=== PATIENT | female | born 2000 | race African-American/Black ===

== ENCOUNTER 2022-08-08 00:36 | Emergency (ER) | payer MEDICAID ==
[2022-08-08] MEDS ORDERED: Ondansetron 4 MG/2 ML SDV IVPUSH ONE (02:31)
[2022-08-08] MEDS ORDERED: Sodium Chloride 0.9% 1,000 ML IV ONE (02:31)
[2022-08-08] MEDS ORDERED: Lactated Ringers 1,000 ML IV ONE (03:49)
[2022-08-08] MEDS ORDERED: Potassium Chloride 20 MEQ Tab.ER PO ONE (03:51)
[2022-08-08] MEDS ORDERED: Ondansetron 4 MG Tab.DIS PO ONE (04:49)
== END 2022-08-08 05:05 | disposition home or self-care (01) ==
LOC: JD.ED 00:36
DX: R11.2 Nausea with vomiting, unspecified (principal); E86.0 Dehydration; Z91.018 Allergy to other foods
CPT/HCPCS: 36415; 80053; 81001; 81025; 83690; 85025; 96361; 96374; 99284; A9270; J2405; J7030; J7120; 99282

== ENCOUNTER 2022-10-17 23:53 | Emergency (ER) | payer MEDICAID ==
[2022-10-18] MEDS ORDERED: Famotidine 20 MG/2 ML SDV IVPUSH ONE (00:12)
[2022-10-18] MEDS ORDERED: EPINEPHrine 1 MG/ML SDV IM ONE (00:12)
[2022-10-18] MEDS ORDERED: diphenhydrAMINE 50 MG/ML SDV IVPUSH ONE (00:12)
[2022-10-18] MEDS ORDERED: methylPREDNISolone Sodium Succinate 125 MG/2 ML SDV IVPUSH ONE (00:12)
[2022-10-18] MEDS ORDERED: Sodium Chloride 0.9% 10 ML Syringe FLUSH PRN (00:13)
== END 2022-10-18 01:05 | disposition home or self-care (01) ==
LOC: JD.ED 23:53
DX: T78.40XA Allergy, unspecified, initial encounter (principal); Z91.018 Allergy to other foods
CPT/HCPCS: 96372; 96374; 96375; 99283; J0171; J1200; J2930; J3490